=== PATIENT | male | born 1970 | race Caucasian/White ===

== ENCOUNTER 2017-09-12 15:16 | Emergency (ER) | payer OTHER ==
[~2017-09-12] VITALS: Ht 182.8 cm; Wt 96.2 kg
[~2017-09-12 15:16] MED LIST: ATIVAN1 MG PO; BACTRIM DS 8001 TA1 PO; CEPHALEXIN500 M1 PO; KEFLEX500 MG PO; NORCO 5-325 TA1 EACH PO
== END 2017-09-12 16:23 | disposition home or self-care (01) ==
LOC: ED 15:16
DX: S60.222A Contusion of left hand, initial encounter (principal); R03.0 Elevated blood-pressure reading, without diagnosis of hypertension; F17.200 Nicotine dependence, unspecified, uncomplicated; Z98.890 Other specified postprocedural states; W22.8XXA Striking against or struck by other objects, initial encounter; Y93.89 Activity, other specified; Y92.69 Other specified industrial and construction area as the place of occurrence of the external cause; Y99.9 Unspecified external cause status

== ENCOUNTER 2018-05-14 17:01 | Emergency (ER) | payer OTHER ==
[~2018-05-14] VITALS: Wt 82.6 kg
== END 2018-05-14 18:50 | disposition left against medical advice (07) ==
LOC: ED 17:01
DX: S90.852A Superficial foreign body, left foot, initial encounter (principal); Z53.21 Procedure and treatment not carried out due to patient leaving prior to being seen by health care provider; X58.XXXA Exposure to other specified factors, initial encounter; Y93.89 Activity, other specified; Y92.89 Other specified places as the place of occurrence of the external cause; Y99.9 Unspecified external cause status

== ENCOUNTER 2018-09-15 06:40 | Emergency (ER) | payer OTHER ==
[~2018-09-15] VITALS: Ht 182.8 cm; Wt 86.2 kg
--- NOTE | ~2018-09-15 | EKG ---
[place], [place] ELECTROCARDIOGRAM REPORT NAME: ADRIANNE THOMAS UNIT #: [id number] ROOM: DOCTOR: EPIPHANY DRAFT REPORT BIRTHDATE: [birth year] [facility] Test Date: 2018-09-15 Test Time: 07:08:45 Pat Name: ADRIANNE THOMAS Department: ER Room: 12 Gender: M Medical Record Librarian: Ginette Ma : 1970 Requested By: IOANA VÁZQUEZ Order Number: [id number] Reading MD: Daniel Montana MD Measurements Intervals [place] Rate: 102 P: 55 MI: 161 QRS: 65 QRSD: 106 T: 41 QT: 344 QTc: 449 Interpretive Statements Sinus tachycardia Poor precordial R-wave progression Baseline wander in lead(s) V1 Electronically Signed On 09-15-2018 16:30:04 PST by Daniel Montana MD CM:EKGRPT:ELECTROCARDIOGRAM REPORT [id number] IOANA PEREZ DRAFT REPORT IOANA VÁZQUEZ DO
[2018-09-15 07:15] LABS: BASO # 0.1 10*3/uL (0.0-0.1); BASO % 0.6 % (0.0-1.0); EOS # 0.2 10*3/uL (0.0-0.4); EOS % 1.2 % (1.0-4.0); HEMATOCRIT 48.7 % (42.0-52.0); HEMOGLOBIN 17.3 g/dl (14.0-18.0); LYMPH # 1.8 10*3/uL (1.3-4.4); LYMPH % 14.1 % (27.0-41.0); MEAN CELL VOLUME 86.7 fl (80.0-94.0); MEAN CORPUSCULAR HGB 30.8 pg (27.0-31.0); MEAN CORPUSCULAR HGB CONC 35.5 g/dl (33.0-37.0); MONO % 7.6 % (3.0-9.0); NEUT # 9.8 10*3/uL (2.3-7.9); NEUT % 76.1 % (47.0-73.0); PLATELET COUNT AUTOMATED 264 10*3/uL (130-400); RED BLOOD COUNT 5.62 10*6/uL (4.50-5.90); RED CELL DISTRI WIDTH 12.7 % (0-14.5); WHITE BLOOD COUNT 12.9 10*3/uL (4.8-10.8)
[2018-09-15 07:23] LABS: INTERNATIONAL NORM RATIO 0.9 (2.0-3.5)
[2018-09-15 07:30] LABS: ALKALINE PHOSPHATASE 86 U/L (45-117); BUN 10 mg/dl (7-24); CHLORIDE 102 mmol/L (98-107); CREATININE 0.79 mg/dL (0.70-1.30); POTASSIUM 4.5 mmol/L (3.5-5.1); SGOT/AST 15 IU/L (3-35); SGPT/ALT 30 U/L (12-78); SODIUM 136 mmol/L (136-145); TOTAL PROTEIN 7.8 gm/dL (6.4-8.2)
[2018-09-15 07:31] LABS: TROPONIN I < 0.015 ng/ml (<0.045)
== END 2018-09-15 09:40 ==
LOC: ED 06:40
PROVIDERS: Emergency Medicine
DX: R07.9 Chest pain, unspecified (principal); R06.02 Shortness of breath; E11.9 Type 2 diabetes mellitus without complications; F17.200 Nicotine dependence, unspecified, uncomplicated

== ENCOUNTER → 2019-02-09 | Outpatient (CLI) | payer OTHER ==
[~2019-02-09] MED LIST changes: +GLUCOPHAGE1000 MG PO
--- NOTE | ~2019-02-09 | ST ---
[place], [place] EXERCISE STRESS TEST REPORT NAME: ADRIANNE THOMAS UNIT #: [id number] ROOM: DOCTOR: SHERMAN LAWSON MD BIRTHDATE: [birth year] DOS: PORTION OF THE EXERCISE CARDIOLITE. The patient walked on the Josemanuel protocol, duration of 5 minutes 15 seconds. achieving a heart rate 155, which is 91% predicted heart rate. Procedure completed because of the completion of the protocol. Baseline cardiogram sinus rhythm with intraventricular conduction delay with small Q-waves in the inferior leads with exercise, no new EKG changes. No chest pain. Blood pressure and heart rate responses normal. Nuclear images will be reported separately. SHERMAN LAWSON MD CM:STRESS:EXERCISE STRESS TEST REPORT [id number] SHERMAN LAWSON MD
--- NOTE | 2019-02-09 07:00 | NUR ---
INFORMED CONSENT OBTAINED FOR EXERCISE CARDIOLITE STRESS TEST WITH DR. LAWSON. RESTING EKG NSR WITH A SUPINE HR OF 82 WITH BP OF 110/70 AND HR OF 95 WITH BP OF 108/72 IN STANDING POSITION. PT COMPLETED 5:15 OF A 2:00 WILY PROTOCOL WITH COMPLETION OF 1:15 OF STAGE III AT 3.4 MPH WITH A 14% GRADE. REACHED A PEAK HR OF 155 WHICH IS 91% OF PREDICTED MAX WITH A PEAK BP OF 154/40. HAD NO CHEST PAIN OR ANY EKG CHANGES. TEST TERMINATED BECAUSE OF FATIGUE. HAS AN AVERAGE EXERCISE TOLERANCE. LAST RECOVERY HR OF 108 WITH BP OF 146/70. TO NUCLEAR MEDICINE IN STABLE CONDITION FOR SCANNING.
== END | disposition home or self-care (01) ==
LOC: CARD 02:19
DX: I20.9 Angina pectoris, unspecified (principal); I10 Essential (primary) hypertension; R94.31 Abnormal electrocardiogram [ECG] [EKG]

== ENCOUNTER 2020-06-05 08:34 | Emergency (ER) | payer OTHER ==
[~2020-06-05] VITALS: Wt 86.6 kg
== END 2020-06-05 10:01 | disposition home or self-care (01) ==
LOC: ED 08:34
DX: S92.411A Displaced fracture of proximal phalanx of right great toe, initial encounter for closed fracture (principal); E11.9 Type 2 diabetes mellitus without complications; K21.9 Gastro-esophageal reflux disease without esophagitis; Z79.84 Long term (current) use of oral hypoglycemic drugs; X58.XXXA Exposure to other specified factors, initial encounter; Y93.89 Activity, other specified; Y92.89 Other specified places as the place of occurrence of the external cause; Y99.8 Other external cause status

== ENCOUNTER → 2020-12-15 | Outpatient (CLI) | payer OTHER | END | disposition home or self-care (01) | LOC: COVID19 10:57 | PROVIDERS: ATTEND Internal Medicine | DX: Z20.822 Contact with and (suspected) exposure to COVID-19 (principal) ==

== ENCOUNTER 2022-04-20 13:49 | Emergency (ER) | payer OTHER ==
[~2022-04-20] VITALS: Wt 89.4 kg
[2022-04-20] MEDS ORDERED: CLINDAMYCIN HC300 MG PO (14:54)
[2022-04-20] MEDS ORDERED: PERCOCET 5-3251 EACH PO (14:54)
== END 2022-04-20 14:04 | disposition home or self-care (01) ==
LOC: ED 13:49
DX: K04.7 Periapical abscess without sinus (principal); F17.200 Nicotine dependence, unspecified, uncomplicated; Z98.890 Other specified postprocedural states

== ENCOUNTER 2023-05-24 13:35 | Emergency (ER) | payer BC ==
[~2023-05-24] VITALS: Ht 182.8 cm; Wt 87.5 kg
[~2023-05-24 13:35] MED LIST changes: +CLINDAMYCIN HC300 MG PO; +PERCOCET 5-3251 EACH PO
[2023-05-24] MEDS ORDERED: HYDROCODONE-AC1 EAC1 PO (14:36)
[2023-05-24] MEDS ORDERED: IBU800 MG PO (14:36)
== END 2023-05-24 14:48 | disposition home or self-care (01) ==
LOC: ED 13:35
DX: T15.91XA Foreign body on external eye, part unspecified, right eye, initial encounter (principal); S05.01XA Injury of conjunctiva and corneal abrasion without foreign body, right eye, initial encounter; E11.9 Type 2 diabetes mellitus without complications; K21.9 Gastro-esophageal reflux disease without esophagitis; Z98.890 Other specified postprocedural states; X58.XXXA Exposure to other specified factors, initial encounter; Y93.89 Activity, other specified; Y92.89 Other specified places as the place of occurrence of the external cause; Y99.0 Civilian activity done for income or pay

== ENCOUNTER 2025-06-30 14:02 | Emergency (ER) | payer BC ==
[~2025-06-30] VITALS: Ht 180.3 cm; Wt 83.9 kg
[~2025-06-30 14:02] MED LIST changes: +HYDROCODONE-AC1 EAC1 PO; +IBU800 MG PO
== END 2025-06-30 15:38 | disposition left against medical advice (07) ==
LOC: ED 14:02
DX: M54.50 Low back pain, unspecified (principal); Z53.21 Procedure and treatment not carried out due to patient leaving prior to being seen by health care provider